=== PATIENT | female | born 1980 | race Caucasian/White ===

== ENCOUNTER 2019-06-02 08:37 | Emergency (ER) | payer MEDICAID, MEDICARE ==
[~2019-06-02] VITALS: Ht 162.6 cm; Wt 65.0 kg
[2019-06-02 08:55] VITALS: BP 127/77
[2019-06-02] MEDS ORDERED: LIDOcaine 1% W/epiNEPHrine 1:200,000 10ml vial IJ ONE (09:20)
[2019-06-02] MEDS ORDERED: SULF1TAB49 PO (09:21)
[2019-06-02] MEDS ORDERED: CEPH500C5 PO (09:22)
== END 2019-06-02 09:52 | disposition home or self-care (01) ==
LOC: ER 08:38
DX: L03.012 Cellulitis of left finger (principal); F32.9 Major depressive disorder, single episode, unspecified; Z91.040 Latex allergy status; Z79.2 Long term (current) use of antibiotics
CPT/HCPCS: 10060; 99283

== ENCOUNTER 2021-07-28 21:24 | Emergency (ER) | payer MEDICAID ==
[~2021-07-28] VITALS: Ht 162.6 cm; Wt 61.4 kg
--- NOTE | 2021-07-28 21:43 | NUR ---
pt presents to the ed tx area with insect embedded in the left inner calf; the pt. denies any symptoms, expect for fear and mild anxiety. she is a/o, nad, skin pwd. await .
--- NOTE | 2021-07-28 22:00 | NUR ---
Insect/tick removal by [facility] Man
[2021-07-28 22:16] VITALS: BP 109/103
== END 2021-07-28 22:29 | disposition home or self-care (01) ==
LOC: ER 21:24
DX: S80.862A Insect bite (nonvenomous), left lower leg, initial encounter (principal); F32.A Depression, unspecified; Z72.89 Other problems related to lifestyle; Z91.040 Latex allergy status; Z88.1 Allergy status to other antibiotic agents; W57.XXXA Bitten or stung by nonvenomous insect and other nonvenomous arthropods, initial encounter; Y93.89 Activity, other specified; Y92.89 Other specified places as the place of occurrence of the external cause; Y99.8 Other external cause status
CPT/HCPCS: 99281

== ENCOUNTER 2023-10-26 11:35 | Emergency (ER) | payer BC, MEDICAID ==
[~2023-10-26] VITALS: Ht 162.6 cm; Wt 63.4 kg
[2023-10-26 13:01] VITALS: BP 127/80; PULSE 87; RESP 16; TEMP 98.8; O2SAT 99
[2023-10-26 13:03] LABS: BILIRUBIN,URINE NEGATIVE (Neg); CLARITY,URINE CLEAR (Clear); COLOR,URINE YELLOW (Yellow); GLUCOSE, URINE NEGATIVE (Neg); KETONES,URINE NEGATIVE (Neg); LEUKOCYTE ESTERASE ,URINE NEGATIVE (Neg); NITRITES, URINE NEGATIVE (Neg); OCCULT BLOOD,URINE SMALL (Neg); PROTEIN,URINE NEGATIVE (Neg); UROBILINOGEN,URINE 0.2 E.U/dL (0.2-1.0)
[2023-10-26 13:04] LABS: UA COLLECTION TYPE CLN CATCH MIDSTREAM
[2023-10-26 13:12] LABS: BASOPHILS % (AUTO) 0.4 % (0-1); EOSINOPHILS # (AUTO) 0.1 X10'3 (0-0.9); EOSINOPHILS % (AUTO) 0.7 % (0-6); HEMATOCRIT 39.5 % (35.0-45.0); HEMOGLOBIN 13.3 g/dl (12.0-16.0); LYMPHOCYTES % (AUTO) 19.6 % (21-51); MEAN CORPUSCULAR HEMOGLOBIN 30.3 PG (27.0-31.0); MEAN CORPUSCULAR HGB CONC 33.6 g/dL (33.0-36.5); MEAN CORPUSCULAR VOLUME 90.2 FL (78-98); MEAN PLATELET VOLUME 7.8 FL (7.4-10.4); MONOCYTES # (AUTO) 0.6 X10'3 (0-0.9); MONOCYTES % (AUTO) 6.2 % (2-12); NEUTROPHILS # (AUTO) 7.6 X10'3 (1.8-7.7); NEUTROPHILS % (AUTO) 73.1 % (42-75); PLATELET COUNT 312 X10'3 (140-440); RED BLOOD COUNT 4.38 X10'6 (4.20-5.60); RED CELL DISTRIBUTION WIDTH 12.6 % (11.5-14.5); WHITE BLOOD COUNT 10.4 X10'3 (4.5-11.0)
[2023-10-26 13:23] LABS: RBC,URINE 0-2 /HPF (0-2); WBC,URINE 0-4 /HPF (0-4)
[2023-10-26 13:24] LABS: BACTERIA,URINE FEW /HPF (Neg); HYALINE CASTS 0-3 /LPF (NEGATIVE); MUCUS STRANDS MODERATE /LPF (Neg); SQUAMOUS EPITHELIAL CELL,UR MANY /LPF (FEW)
[2023-10-26 13:27] LABS: CAL OXALATE CRYSTALS FEW /HPF (NEGATIVE)
== END 2023-10-26 13:42 | disposition home or self-care (01) ==
LOC: ER 11:35
DX: J02.9 Acute pharyngitis, unspecified (principal); F17.210 Nicotine dependence, cigarettes, uncomplicated; Z91.040 Latex allergy status; Z88.8 Allergy status to other drugs, medicaments and biological substances
CPT/HCPCS: 36415; 71045; 81001; 84443; 85025; 99284